=== PATIENT | female | born 1960 | race Caucasian/White ===

== ENCOUNTER 2017-11-25 09:09 | Emergency (ER) | payer OTHER, SELFPAY ==
[2017-11-25 09:10] VITALS: BP 211/127; PULSE 101; RESP 20; TEMP 36.9; O2SAT 96; BMI 62.6
--- NOTE | 2017-11-25 09:30 | CT_ITS ---
STUDY: CT ABDOMEN AND PELVIS WITHOUT CONTRAST REASON FOR EXAM: Female, 57 years old. One-day history of abdominal pain with nausea vomiting and diarrhea. RADIATION DOSAGE (If Supplied By Facility): CTDIvol = ( 34.45 ) mGy, DLP = ( 2022.94 ) mGycm TECHNIQUE: Transaxial images were obtained from the dome of the diaphragm to the symphysis pubis without oral contrast, and without intravenous contrast. Sagittal and coronal images were reconstructed. Individualized dose optimization techniques were used for this CT. COMPARISON: Comparison is made with prior study dated December 28, 2014. FINDINGS: The visualized lung bases are unremarkable. The visualized portions of the heart are within normal limits. There is decreased attenuation of the liver consistent with steatosis. Mild hepatomegaly. The patient is status post cholecystectomy. Normal spleen. Normal pancreas. Normal bilateral adrenal glands. Normal right kidney. Normal left kidney. There is a small hiatal hernia. Normal small intestine. There are multiple colonic diverticula consistent with diverticulosis. The appendix is visualized and appears normal. Normal abdominal aorta. Normal inferior vena cava. Normal retroperitoneum. Normal urinary bladder. Normal abdominal wall. There are diffuse degenerative changes of the visualized lumbar spine. CT/Abdomen/Pelvis without Cont IMPRESSION: No acute abnormality is seen. Electronically Signed: Sam Dumont MD at 10:51 EST Tel [phone], Service support ,
--- NOTE | 2017-11-25 09:33 | ED.VISSUMM ---
- ER Visit Summary Date of Service: 11/25/17 Chief Complaint: Nausea, vomiting, and diarrhea History of Present Illness: The patient is a 57 F with nausea, vomiting, and diarrhea that started yesterday. The patient had similar symptoms about a week ago, but they seem to resolve on their own. She says that it is worsened with any eating or drinking. She cannot take her medications. She does have some right lower abdominal pain as well. She reports chills and subjective fevers. She has a history of a hernia, surgery right oophorectomy, and bilateral tubal ligation. Physical Examination: Hypertensive 211/127. Heart rate 101. Otherwise vitals unremarkable. Afebrile. The patient appears uncomfortable but not toxic or in distress. Heart regular. Lungs clear. Abdomen is tender in the right lower quadrant. Back is nontender. Skin appears normal. Test Results: Labs, urinalysis, C. difficile testing, and CT pending. Emergency Department Course and Treatment: Treated with fluids and Zofran while awaiting results. CBC normal. CMP unremarkable. Creatinine 1.16. Alk phos 38. Lipase normal. Urinalysis shows a UTI. Culture pending. C. difficile was not performed as the patient did not have a bowel movement. CT abdomen showed no acute findings. On reassessment, the patient remains hypertensive. No further nausea or diarrhea. She was treated with Cipro for her UTI. She will be prescribed a course of Cipro and Zofran. Stay hydrated. Follow-up with PCP for recheck. Return if worse. She will resume her blood pressure medications at home at her request. Risks were discussed. Treatment Plan: As above Disposition: Discharged Impression: 1. UTI 2. Nausea, vomiting, diarrhea 3. Hypertension established This note was generated with [employer] software. It may contain incorrect words, spelling, and punctuation that were not noted in review of the chart prior to signing ED Disposition - Plan for ED Patient: Chief Complaint: Nausea/Vomiting/Diarrhea Referrals: Misael Snyder III, MD [Primary Care Provider] -
[2017-11-25] MEDS: 0.9% Normal Saline 1,000 ML 1000 ML IV (09:52)
[2017-11-25] MEDS: Ondansetron 4 MG/2 ML Vial IV (09:52)
[2017-11-25 10:22] LABS: ALB/GLOB Ratio 0.9 RATIO (0.9-2.4); AST(SGOT) 19 U/L (15-37); Alanine Aminotransfer ALT/SGPT 25 U/L (13-56); Albumin, Serum 3.6 g/dL (3.2-5.0); Alkaline Phosphatase 38 U/L (45-117); Anion Gap 5 (5-15); BUN 10 mg/dL (7-18); BUN/Creat Ratio 8.6 RATIO (10-20); Calcium,Total 8.8 mg/dL (8.5-10.1); Chloride 105 mmol/L (98-107); Creatinine, Serum 1.16 mg/dL (0.55-1.02); EST Glomerular Filtration Rate 51 mL/min (>60); Est Glom Filt Rate - Afr Amer 62 mL/min (>60); Estimated Creatinine Clearance 52.03 ml/min; Globulin 3.9 g/dL (2.2-4.2); Glucose 104 mg/dL (74-106); Lipase 143 U/L (73-393); Potassium 4.1 mmol/L (3.5-5.1); Protein, Total 7.5 g/dL (6.4-8.2); Sodium Level 140 mmol/L (136-145)
[2017-11-25 10:30] LABS: Absolute Lymphocyte Count 1.38 X10^3/ul (0.83-4.51); Absolute Neutrophil Count 3.9 X10^3/uL (2.0-7.7); Basophil# 0.01 X10^3/uL; Basophil% 0.2 % (0-1); Eosinophil# 0.16 X10^3/uL; Eosinophils% 2.7 % (0-5); Hematocrit 42.7 % (37-47); Lymphocyte # 1.38 X10^3/ul (4.0); Lymphocyte % 23.5 % (19-41); Mean Corp Hgb Conc 32.8 g/gl (32-36); Mean Corpuscular Hgb 29.4 pg (27.0-32.0); Mean Corpuscular Volume 89.7 fL (81-99); Mean Platelet Vol. 9.3 fl (6.2-12.0); Monocyte# 0.37 X10^3/uL; Monocyte% 6.3 % (0-10); Neutrophil # 3.93 X10^3/uL (2.7-7.7); Neutrophil % 67.1 % (47-70); Platelet Count 303 K/mm3 (150-450); RBC Distribution Width CV 14.3 % (11.6-14.6); RBC Distribution Width SD 46.7 fl (35.1-43.9); Red Blood Count 4.76 M/mm3 (4.2-5.4); White Blood Count 5.9 K/mm3 (4.4-11.0)
[2017-11-25 10:32] LABS: POSITIVE COUNT NO; POSITIVE DIFFERENTIAL NO; POSITIVE MORPHOLOGY NO
[2017-11-25 11:27] LABS: Mucous, Urine 0 SEEN /hpf (<or=2+)
[2017-11-25 11:30] LABS: Color, Urine Yellow (Yellow); Glucose, Dipstick Normal (Normal); Ketone-Dipstick Negative (Negative); Leukocyte Esterase-Dipstick 500 /ul (Negative); Nitrite-Dipstick Positive (Negative); Occult Blood-Urine 25 /ul (Negative); Protein-Dipstick Negative (Negative); Specific Gravity, Urine 1.005 (1.002-1.030); Urine Bilirubin Dipstick Negative (Negative); Urine Clarity Sl. Cloudy (Clear); Urine Urobilinogen Normal (Normal)
[2017-11-25 11:42] LABS: Bacteria 3+ /hpf (None Seen); Red Blood Cells-Urine 0-5 SEEN /hpf (0-5); Squamous Epithelial Cells - UA 0-5 SEEN /hpf (5-10); White Blood Cells 25-50 SEEN /hpf (0-5)
[2017-11-25 12:03] VITALS: BP 205/103; PULSE 97; RESP 22; O2SAT 95
[2017-11-25] MEDS: Ciprofloxacin 500 MG Tablet PO (12:43)
--- NOTE | 2017-11-25 12:58 | ED.DEP ---
ED Disposition - Plan for ED Patient: Chief Complaint: Nausea/Vomiting/Diarrhea Instructions: ED UTI Cystitis Female Prescriptions: Ondansetron [Zofran Odt] 4 mg PO Q8H PRN PRN #10 tab PRN Reason: Nausea Ciprofloxacin [Cipro] 500 mg PO BID #14 tab Referrals: Misael Snyder III, MD [Primary Care Provider] -
[2017-11-25 13:06] VITALS: PULSE 93; RESP 18; O2SAT 98
== END 2017-11-25 13:07 | disposition home or self-care (01) ==
PROVIDERS: Emergency Provider Emergency Medicine; Family Provider Family Medicine; PCP Family Medicine
DX: N39.0 Urinary tract infection, site not specified (principal); R11.2 Nausea with vomiting, unspecified; R19.7 Diarrhea, unspecified; I10 Essential (primary) hypertension; M19.90 Unspecified osteoarthritis, unspecified site; Z90.721 Acquired absence of ovaries, unilateral; Z98.51 Tubal ligation status; Z79.899 Other long term (current) drug therapy
CPT/HCPCS: 74176; 80053; 81001; 83690; 85025; 87086; 87088; 87186; 96361; 96374; 99285; J7030; P9612; J2405

== ENCOUNTER 2018-04-02 09:55 | Emergency (ER) | payer OTHER, SELFPAY ==
[2018-04-02 09:56] VITALS: BP 182/109; PULSE 64; RESP 17; TEMP 36.2; O2SAT 97; BMI 62.9
--- NOTE | 2018-04-02 10:19 | ED.VISSUMM ---
- ER Visit Summary Date of Service: 04/02/18 Chief Complaint: Right ear pain History of Present Illness: The patient is a 57 F who has a history of hypertension GERD morbid obesity. She states that for the past 6 weeks she has had nasal congestion. She states that today she has a burning-like pain in the ear on the right. She states that it was sore to the touch. She notes that her ear feels clogged. She denies any fevers. Eyes any drainage from the ear. She denies any rashes. Physical Examination: Afebrile vital signs are stable noted hypertension Gen: Well-nourished well-developed Head: Normocephalic atraumatic Eyes: Perrl EOMI ENT: There is fluid behind each tympanic membrane right greater than left. I do not appreciate any vesicular rash. There is no mastoid tenderness. There is no significant pain with movement of the pinna. No rhinorrhea moist mucous membranes Neck: Supple no lymphadenopathy no JVD nontender CVS: Regular rate rhythm no murmurs normal S1-S2 Respiratory: No distress clear to auscultation bilaterally chest nontender Abdomen: Soft nontender nondistended normal bowel sounds no masses Back: Nontender Extremity: Nontender no edema Skin: Normal color no rash Neuro: alert orientated ?3 CN II-XII intact normal strength sensation reflexes gait cerebellar Psych: Normal affect normal mood Emergency Department Course and Treatment: She was advised to monitor for signs of shingles. She is to return if that happens. I think is most likely a serous otitis. The patient may be developing a bacterial infection. We talked about [id number] technique. Recommend Tylenol. Follow-up with her doctor if not improving. She will have a prescription for Augmentin. Impression: 1. Serous otitis media right This note was generated with [employer] dictation software. It may contain incorrect words, spelling, and punctuation that were not noted in review of the chart prior to signing ED Disposition - Plan for ED Patient: Disposition: Home or Assisted Living Chief Complaint: Ear Problem Instructions: ED Otitis Media Serous Adult Prescriptions: Amox/Clavulanate Tablet [Augmentin Tablet] 875 mg PO Q12H #20 tab Referrals: Misael Snyder III, MD [Primary Care Provider] - 1 Week if not improving
--- NOTE | 2018-04-02 10:23 | ED.DCSUM_ITS ---
- ER Visit Summary Date of Service: 04/02/18 Chief Complaint: Right ear pain History of Present Illness: The patient is a 57 F who has a history of hypertension GERD morbid obesity. She states that for the past 6 weeks she has had nasal congestion. She states that today she has a burning-like pain in the ear on the right. She states that it was sore to the touch. She notes that her ear feels clogged. She denies any fevers. Eyes any drainage from the ear. She denies any rashes. Physical Examination: Afebrile vital signs are stable noted hypertension Gen: Well-nourished well-developed Head: Normocephalic atraumatic Eyes: Perrl EOMI ENT: There is fluid behind each tympanic membrane right greater than left. I do not appreciate any vesicular rash. There is no mastoid tenderness. There is no significant pain with movement of the pinna. No rhinorrhea moist mucous membranes Neck: Supple no lymphadenopathy no JVD nontender CVS: Regular rate rhythm no murmurs normal S1-S2 Respiratory: No distress clear to auscultation bilaterally chest nontender Abdomen: Soft nontender nondistended normal bowel sounds no masses Back: Nontender Extremity: Nontender no edema Skin: Normal color no rash Neuro: alert orientated ?3 CN II-XII intact normal strength sensation reflexes gait cerebellar Psych: Normal affect normal mood Emergency Department Course and Treatment: She was advised to monitor for signs of shingles. She is to return if that happens. I think is most likely a serous otitis. The patient may be developing a bacterial infection. We talked about [id number] technique. Recommend Tylenol. Follow-up with her doctor if not improving. She will have a prescription for Augmentin. Impression: 1. Serous otitis media right This note was generated with [employer] dictation software. It may contain incorrect words, spelling, and punctuation that were not noted in review of the chart prior to signing ED Disposition - Plan for ED Patient: Disposition: Home or Assisted Living Chief Complaint: Ear Problem Instructions: ED Otitis Media Serous Adult Prescriptions: Amox/Clavulanate Tablet [Augmentin Tablet] 875 mg PO Q12H #20 tab Referrals: Misael Snyder III, MD [Primary Care Provider] - 1 Week if not improving
[2018-04-02 10:27] VITALS: BP 158/77; PULSE 61; RESP 16; O2SAT 97
== END 2018-04-02 10:42 | disposition home or self-care (01) ==
LOC: ED 10:33
PROVIDERS: Emergency Provider Emergency Medicine; Family Provider Family Medicine; PCP Family Medicine
DX: H65.01 Acute serous otitis media, right ear (principal); I10 Essential (primary) hypertension; K21.9 Gastro-esophageal reflux disease without esophagitis; E66.01 Morbid (severe) obesity due to excess calories; Z68.44 Body mass index [BMI] 60.0-69.9, adult; Z79.899 Other long term (current) drug therapy
CPT/HCPCS: 99282

== ENCOUNTER 2019-06-07 10:41 | Emergency (ER) | payer OTHER, SELFPAY ==
[2019-02-12 12:16] VITALS: BMI 62.9
[2019-06-07 10:42] VITALS: BP 155/112; PULSE 109; RESP 20; TEMP 36.8; O2SAT 95; BMI 62.6
[2019-06-07 10:50] VITALS: BMI 63.3
--- NOTE | 2019-06-07 10:52 | ED.DCSUM_ITS ---
History of Present Illness Chief Complaint: Abd Pain Detail of Chief Complaint: Right lower quadrant with nausea and vomiting Informant: Patient Onset: Days - June 04 Context: Sudden Onset Timing: Continuous, Waxes and wanes Quality: Pain Location: Right lower quadrant Current Severity: Mild Maximum Severity: Severe Worsened by: Nothing specifically Relieved by: Nothing Associated Symptoms: Nausea and vomiting Narrative: Patient is a 59-year-old woman with a BMI of 63.3 presents with nausea and vomiting right lower quadrant abdominal pain that started June 04. She states the pain is constant and waxes and wanes. She denies dysuria, frequency, urgency or hematuria. She is status post cholecystectomy and right nephrectomy. Her appendix is still in. She denies anorexia. She states any time she attempts to eat even crackers she vomits. She denies fever or chills. She denies viral-like symptoms. There is no history of trauma. Prior similar symptoms: No Recent Illness/Hospitalization: No - Past Medical History (1) Depression Status: Chronic (2) GERD (gastroesophageal reflux disease) Status: Chronic (3) HTN (hypertension) Status: Chronic (4) Morbid obesity with BMI of 60.0-69.9, adult Status: Chronic Past Medical History - Allergies and Home Meds Allergies/Adverse Reactions: Allergies hydrocodone bitartrate [From Vicodin] Allergy (Verified 06/07/19 10:42) Itching venom-honey bee [bee venom (honey bee)] Allergy (Verified 06/07/19 10:42) Swelling venom-wasp [wasp venom] Allergy (Verified 06/07/19 10:42) Anaphylaxis enoxaparin sodium [From Lovenox] Adverse Reaction (Verified 06/07/19 10:42) Excessive bruising PLASTIC BANDAIDS Allergy (Uncoded 06/07/19 10:42) Blisters Primary Care Physician: Misael Snyder III, MD [Primary Care Provider] - Prior records reviewed: Yes Surgical History: cholecystectomy, - - EGD and colonoscopy Lives: Alone Smoking Status: Former smoker Alcohol: None Drugs: None - Family History Maternal Family History: Reports: Diabetes Paternal Family History: Reports: Stroke Review of Systems General: Denies: Chills, Fever, Malaise, Sweats Eyes: Denies: Visual changes - bilaterally, Blurred Vision - bilaterally, Diplopia ENT: Denies: Rhinorrhea, Sore throat Cardiovascular: Denies: Chest pain, Palpitations Respiratory: Denies: Dyspnea, Cough, Dyspnea on exertion Gastrointestinal: Reports: Abdominal pain, Nausea, Vomiting Genitourinary: Denies: Dysuria, Hematuria, Frequency Musculoskeletal: Denies: Myalgias, Arthralgias, Neck pain, Back pain, Swelling, Extremity Pain, -, - Skin: Denies: Rash, Wounds Neurological: Denies: Headache, Weakness, Parasthesia, Numbness Psych: Reports: Depression Endocrine: Denies: Polyuria, Polydipsia Hematologic: Denies: Easy bruising, Easy bleeding Physical Exam Vital Signs/Narrative: Vital Signs Temp Pulse Resp BP Pulse Ox 06/07/19 10:42 98.3 F 109 H 20 H 155/112 H 95 Inital Vital Signs reviewed: Yes General: Well nourished, Well developed, Acute Distress Head: Normocephalic, Atraumatic Eyes: Perrl, EOMI. Negative for: Pale conjunctiva, Scleral icterus ENT: No rhinorrhea, Dry mucous membranes. Negative for: Nasal congestion, Sinus tenderness Neck: Supple, Nontender, No lymphadenopathy, No JVD Cardiovascular: Regular rhythm, No murmurs, Normal S1, Normal S2, Tachycardia Respiratory: No distress, CTA bilaterally, Chest nontender Abdomen: Soft, Nontender, Nondistended, Normal bowel sounds, No masses Rectal: Deferred Back: Nontender, Normal Inspection. Negative for: CVA tenderness Extremities: Nontender, Edema Skin: Normal color, No rash, No Trauma. Negative for: Cyanosis, Diaphoresis, Jaundice Neurological: Alert, Oriented x3, Cranial nerves II-XII grossly intact, Normal Strength, Normal Sensation, Normal Gait - Not assessed Psychological: Normal affect Diagnostic/Tx/Re-eval Impressions Abdomen/Pelvis CT 06/07/19 12:00 IMPRESSION: Status post cholecystectomy. Mild hepatomegaly. No acute abnormality is seen. Electronically Signed: Sam Dumont, at 12:45 EDT , Service support , 06/07/19 12:00 Abdomen/Pelvis without Cont [CT] Stat Laboratory Results 09/09/19 09/09/19 09/09/19 11:10 11:10 11:10 WBC 11.1 H RBC 5.66 H Hgb 17.1 H Hct 51.1 H MCV 90.3 MCH 30.2 MCHC 33.5 RDW Std Deviation 42.4 RDW Coeff of Ole 13.0 Plt Count 476 H MPV 9.2 Immature Gran % (Auto) 0.400 Neut % (Auto) 58.9 Lymph % (Auto) 30.5 [place] % (Auto) 6.0 Eos % (Auto) 3.7 Baso % (Auto) 0.5 Absolute Neuts (auto) 6.5 Absolute Lymphs (auto) 3.40 Nucleated RBC % 0 Sodium 138 Potassium 4.2 Chloride 104 Carbon Dioxide 23.0 Anion Gap 11 BUN 16 Creatinine 1.59 H Estim Creat Clear Calc 35.66 Est GFR (MDRD) Af Amer 43 L Est GFR (MDRD) Non-Af 35 L BUN/Creatinine Ratio 10.1 Glucose 146 H Calcium 9.8 Urine Color Yellow Urine Clarity Sl. Cloudy Urine pH 5.0 Ur Specific [place] 1.020 Urine Protein 30 H Urine Glucose (UA) Normal Urine Ketones 5 H Urine Occult Blood 25 H Urine Nitrite Positive H Urine Bilirubin Negative Urine Urobilinogen 1 H Ur Leukocyte Esterase 100 H Urine RBC 0-5 SEEN Urine WBC 10-25 SEEN Ur Squamous Epith Cells 10-25 SEEN Urine Bacteria 3+ Urine Mucus 0 SEEN White count is slightly elevated which is nondiagnostic. Basic metabolic panel is remarkable elevated glucose of 146. Urine is contaminated with [address] of the abdomen pelvis reveals no acute pathology. Therefore will discharge home. Patient was informed that 50% of patients who presents to the emergency department the cause of the pain is unknown. When I informed of this information she no longer was in pain and asked questions. Her questions were answered to her satisfaction and she was discharged home. - Medical Decision Making With abrupt onset of right lower quadrant pain that is colicky in nature differential would include obstructing ureteral stone. Since she does not have a right ovary there is no consideration for torsion, ruptured cyst. This may represent atypical presentation for appendicitis. Since there is no diarrhea inflammatory bowel disorder is low on differential. Since she has no viral symptoms doubt mesenteric adenitis. Once laboratory results are available we will determine if a scan will be obtained with or without contrast. ED Disposition - Plan for ED Patient: Disposition: Home or Assisted Living Diagnosis: Right lower quadrant abdominal pain Instructions: ABDOMINAL PAIN, Unknown Cause, (Female) Referrals: Misael Snyder III, MD [Primary Care Provider] - 3-5 Days if not improving
[2019-06-07] MEDS: 0.9% Normal Saline 1,000 ML 1000 ML IV (11:11)
[2019-06-07] MEDS: morphine 8 MG/ML Syringe IV (11:12)
[2019-06-07] MEDS: Ondansetron 4 MG/2 ML Vial IV (11:12)
[2019-06-07 11:20] LABS: Absolute Neutrophil Count 6.5 X10^3/uL (2.0-7.7); Basophil# 0.06 X10^3/uL; Basophil% 0.5 % (0-1); Eosinophil# 0.41 X10^3/uL; Eosinophils% 3.7 % (0-5); Hematocrit 51.1 % (37-47); Hemoglobin 17.1 g/dL (12.0-15.0); Lymphocyte % 30.5 % (19-41); Mean Corp Hgb Conc 33.5 g/dL (32-36); Mean Corpuscular Hgb 30.2 pg (27.0-32.0); Mean Corpuscular Volume 90.3 fL (81-99); Mean Platelet Vol. 9.2 fl (6.2-12.0); Monocyte# 0.67 X10^3/uL; Mucous, Urine 0 SEEN /hpf (<or=2+); NRBC Flagged by Analyzer 0 % (0-5); Neutrophil # 6.54 X10^3/uL (2.7-7.7); Neutrophil % 58.9 % (47-70); Platelet Count 476 K/mm3 (150-450); RBC Distribution Width SD 42.4 fl (35.1-43.9); Red Blood Count 5.66 M/mm3 (4.2-5.4); White Blood Count 11.1 K/mm3 (4.4-11.0)
[2019-06-07 11:26] LABS: Color, Urine Yellow (Yellow); Glucose, Dipstick Normal (Normal); Ketone-Dipstick 5 mg/dl (Negative); Leukocyte Esterase-Dipstick 100 /ul (Negative); Nitrite-Dipstick Positive (Negative); Occult Blood-Urine 25 /ul (Negative); Protein-Dipstick 30 mg/dl (Negative); Urine Bilirubin Dipstick Negative (Negative); Urine Clarity Sl. Cloudy (Clear); Urine Urobilinogen 1 mg/dl (Normal)
[2019-06-07 11:33] LABS: Anion Gap 11 (5-15); BUN 16 mg/dL (7-18); BUN/Creat Ratio 10.1 RATIO (10-20); Bacteria 3+ /hpf (None Seen); Calcium,Total 9.8 mg/dL (8.5-10.1); Chloride 104 mmol/L (98-107); Creatinine, Serum 1.59 mg/dL (0.55-1.02); EST Glomerular Filtration Rate 35 mL/min (>60); Est Glom Filt Rate - Afr Amer 43 mL/min (>60); Estimated Creatinine Clearance 35.66 ml/min; Glucose 146 mg/dL (74-106); Potassium 4.2 mmol/L (3.5-5.1); Red Blood Cells-Urine 0-5 SEEN /hpf (0-5); Sodium Level 138 mmol/L (136-145); Squamous Epithelial Cells - UA 10-25 SEEN /hpf (5-10); White Blood Cells 10-25 SEEN /hpf (0-5)
--- NOTE | 2019-06-07 12:00 | CT_ITS ---
STUDY: CT ABDOMEN AND PELVIS WITHOUT CONTRAST REASON FOR EXAM: Female, 59 years old. Several day history of right-sided abdominal pain. RADIATION DOSAGE (If Supplied By Facility): CTDIvol = ( 34.45 ) mGy, DLP = ( 1781.77 ) mGycm TECHNIQUE: Transaxial images were obtained from the dome of the diaphragm to the symphysis pubis without oral contrast, and without intravenous contrast. Sagittal and coronal images were reconstructed. Individualized dose optimization techniques were used for this CT. COMPARISON: Comparison is made with prior study dated November 25, 2017. FINDINGS: The visualized lung bases are unremarkable. The visualized portions of the heart are within normal limits. Normal liver. Mild hepatomegaly. There are surgical clips in the gallbladder fossa consistent with a prior cholecystectomy. Normal spleen. Normal pancreas. Normal bilateral adrenal glands. Normal right kidney. Normal left kidney. Normal visualized stomach. Normal small intestine. Normal colon. The appendix is visualized and appears normal. There is diffuse atherosclerotic calcification of the abdominal aorta, without a demonstrated aneurysm. Normal inferior vena cava. There is borderline retroperitoneal lymphadenopathy with enlarged nodes no greater than 10mm in the short axis diameter. Normal urinary bladder. 1.6 x 1.6 cm calcified right uterine fibroid. A mesh is seen along the anterior abdominal wall in keeping with prior ventral hernia repair. There are diffuse degenerative changes of the visualized lumbar spine. CT/Abdomen/Pelvis without Cont IMPRESSION: Status post cholecystectomy. Mild hepatomegaly. No acute abnormality is seen. Electronically Signed: Sam Dumont, at 12:45 EDT , Service support ,
[2019-06-07 13:11] VITALS: BP 139/96; PULSE 74; RESP 18; O2SAT 99
[2019-06-07 13:50] VITALS: BP 141/72; PULSE 67; RESP 15; O2SAT 98
== END 2019-06-07 13:52 | disposition home or self-care (01) ==
PROVIDERS: Emergency Provider Emergency Medicine; Family Provider Family Medicine; PCP Family Medicine
DX: R10.31 Right lower quadrant pain (principal); R11.2 Nausea with vomiting, unspecified; K21.9 Gastro-esophageal reflux disease without esophagitis; I10 Essential (primary) hypertension; Z68.44 Body mass index [BMI] 60.0-69.9, adult; E66.01 Morbid (severe) obesity due to excess calories; F32.9 Major depressive disorder, single episode, unspecified; Z79.899 Other long term (current) drug therapy; Z87.891 Personal history of nicotine dependence
CPT/HCPCS: 74176; 80048; 81001; 85025; 96361; 96374; 96375; 99283; J2405

== ENCOUNTER 2019-10-18 14:01 | Emergency (ER) | payer OTHER, SELFPAY ==
[2019-10-04 14:01] VITALS: BMI 63.3
[2019-10-18 14:02] VITALS: BP 119/65; PULSE 50; RESP 18; TEMP 36.2; O2SAT 97
[2019-10-18 14:03] VITALS: BP 119/65; PULSE 50; RESP 18; TEMP 36.2; O2SAT 97; BMI 63.6
--- NOTE | 2019-10-18 15:18 | RAD_ITS ---
STUDY: X-RAY CHEST REASON FOR EXAM: Female, 59 years old. COUGH X WEEKS TECHNIQUE: PA and lateral views of the chest. COMPARISON: July 28, 2017 CT chest FINDINGS: The vascular markings are mildly prominent. Findings are similar to the prior studies. There is vague suggestion of increased density in the left lung base. There is no demonstrated pleural abnormality. Normal size heart. Normal mediastinum and mahendra. Normal visualized pulmonary arteries. Normal visualized aortic arch and descending thoracic aorta. There are diffuse degenerative changes of the visualized thoracic spine. Normal visualized ribs, clavicles, and shoulders. There is no demonstrated abnormality of the visualized soft tissue structures of the upper abdomen. RAD/Chest PA and Lateral IMPRESSION: Vascular prominence consider vascular congestion and possible left lower lobe atelectasis. Limited visualization of the left lung base. Electronically Signed: Zenobia Espino MD at 15:59 EST Tel , Service support ,
--- NOTE | 2019-10-18 15:19 | ED.VIS.URI ---
History of Present Illness Chief Complaint: Shortness of Breath Informant: Patient Onset: Weeks - 2-3 Context: Gradual Onset Timing: Continuous Quality: wheezing Location: chest Current Severity: Gone Maximum Severity: Moderate Worsened by: - - coughing Relieved by: - - albuterol Associated Symptoms: Nasal Congestion, Vomiting - only posttussive when having coughing fits, Shortness of Breath - when wheezing, Nonproductive cough. Negative for: Hemoptysis Narrative: Patient has had cough and wheezing for the past couple weeks maybe a little more, 3 days into the illness she saw urgent care and was put on prednisone and azithromycin that she finished, she states that made no difference and she is still ill. She has no worsening symptoms, she has an albuterol inhaler that is helping when she wheezes, no fevers. Her right ear is hurting off and on. Chest is sore from coughing, no other pains/discomfort there. No new symptoms in her legs, pains or swelling. No history of cardiac issues or DVT/PE. Patient states she has a history of recurrent asthmatic bronchitis but does not think she has ever had asthma from any other causes except for when she gets sick. Prior similar symptoms: Yes - Past Medical History (1) Depression Status: Chronic (2) GERD (gastroesophageal reflux disease) Status: Chronic (3) HTN (hypertension) Status: Chronic (4) Morbid obesity with BMI of 60.0-69.9, adult Status: Chronic Past Medical History - Allergies and Home Meds Allergies/Adverse Reactions: Allergies hydrocodone bitartrate [From Vicodin] Allergy (Verified 10/18/19 15:22) Itching venom-honey bee [bee venom (honey bee)] Allergy (Verified 10/18/19 15:22) Swelling venom-wasp [wasp venom] Allergy (Verified 10/18/19 15:22) Anaphylaxis enoxaparin sodium [From Lovenox] Adverse Reaction (Verified 10/18/19 15:22) Excessive bruising PLASTIC BANDAIDS Allergy (Uncoded 10/18/19 15:22) Blisters Primary Care Physician: Misael Snyder III, MD [Primary Care Provider] - Surgical History: cholecystectomy, - - EGD and colonoscopy Lives: Alone Smoking Status: Former smoker - Family History Maternal Family History: Reports: Diabetes Paternal Family History: Reports: Stroke Review of Systems General: Reports: Malaise. Denies: Chills, Fever, Sweats Eyes: Denies: Visual changes - bilaterally, Diplopia ENT: Reports: Right ear pain, Rhinorrhea. Denies: Sore throat Cardiovascular: Reports: Chest pain - Sore from coughing. See HPI. Denies: Palpitations Respiratory: Reports: Dyspnea, Cough. Denies: Sputum, Dyspnea on exertion Gastrointestinal: Denies: Abdominal pain, Nausea, Vomiting, Diarrhea, Melena, Hematochezia Genitourinary: Denies: Dysuria, Hematuria, Frequency Musculoskeletal: Denies: Back pain, Swelling, Extremity Pain Skin: Denies: Rash, Wounds Neurological: Denies: Headache, Weakness, Numbness Physical Exam Vital Signs/Narrative: Vital Signs Temp Pulse Resp BP Pulse Ox 10/18/19 14:03 97.2 F L 50 L 18 119/65 97 10/18/19 14:02 97.2 F L 50 L 18 119/65 97 Inital Vital Signs reviewed: Yes General: Well nourished, Well developed, Obese Head: Normocephalic, Atraumatic Eyes: Perrl, EOMI Ears: Normal external canal, TM's clear. Negative for: Right Mastoid Tenderness, Left Mastoid Tenderness Nose: Normal Inspection. Negative for: Purulent Drainage Mouth/Throat: Normal Inspection, No Posterior Erythema Neck: Supple, Nontender, No Lymphadenopathy, No Meningismus Cardiovascular: Regular rate, Regular rhythm, No murmurs Respiratory: No distress, CTA bilaterally, Chest nontender. Negative for: Rales, Rhonchi, Wheezing Abdomen: Soft, Nontender, Nondistended, Normal bowel sounds Back: Nontender, Normal Inspection Extremities: Nontender, No edema. Negative for: Calf Tenderness Skin: Normal color, No rash Neurological: Alert, Oriented x3, Cranial nerves II-XII grossly intact, Normal Strength, Normal Sensation Psychological: Normal affect, Normal Mood Diagnostic/Tx/Re-eval Clinical Impression(s) from Imaging Studies Chest X-Ray 10/18/19 15:18 IMPRESSION: Vascular prominence consider vascular congestion and possible left lower lobe atelectasis. Limited visualization of the left lung base. Electronically Signed: Zenobia Espino MD at 15:59 EST Tel , Service support , - Medical Decision Making Patient symptoms are consistent with respiratory illness. She probably does not have true asthma based on what she is telling me and the fact that she has not responded to prednisone. She was on an appropriate antibiotic to cover for atypicals and is not better. Chest x-ray was obtained and has the above findings. Until proven otherwise, I think these findings may represent infiltrate/pneumonia. She has no orthopnea or lower extremity edema, or JVD or basilar rhonchi to suggest that this is vascular/edema in nature. With left lower lobe atelectasis in context, I think it would be reasonable to treat this as pneumonia although I think it is possible that she does not have pneumonia. Will place her on Augmentin and advised that she follow-up with her PCP. I do not think she needs any other test, her vital signs are normal and her oxygen levels are very good, and she is not symptomatic at this time when she is not coughing except for having chest soreness that is reproducible on palpation. She is comfortable with that plan and understands the explanation. ED Disposition - Plan for ED Patient: Disposition: Home or Assisted Living Diagnosis: Lower respiratory tract infection Instructions: BRONCHITIS with Wheezing (Adult) Prescriptions: Amox/Clavulanate Tablet [Augmentin Tablet] 875 mg PO Q12H #20 tab Transmission Status: Pending to [facility]/pharmacy #[id number] Referrals: Misael Snyder III, MD [Primary Care Provider] - 3-5 Days if not improving
[2019-10-18 15:46] VITALS: O2SAT 97
[2019-10-18 15:47] VITALS: BP 117/66; PULSE 43; O2SAT 96
== END 2019-10-18 16:24 | disposition home or self-care (01) ==
PROVIDERS: Emergency Provider Emergency Medicine; PCP Family Medicine
DX: J22 Unspecified acute lower respiratory infection (principal); H92.01 Otalgia, right ear; I10 Essential (primary) hypertension; K21.9 Gastro-esophageal reflux disease without esophagitis; E66.01 Morbid (severe) obesity due to excess calories; Z68.44 Body mass index [BMI] 60.0-69.9, adult; Z79.899 Other long term (current) drug therapy; Z88.5 Allergy status to narcotic agent; Z87.891 Personal history of nicotine dependence; Z90.49 Acquired absence of other specified parts of digestive tract
CPT/HCPCS: 71046; 99282

== ENCOUNTER → 2019-10-25 12:09 | Outpatient (CLI) | payer OTHER, SELFPAY ==
[2019-10-18 14:03] VITALS: BMI 63.6
[2019-10-25 13:50] LABS: Hematocrit 40.4 % (37-47); Mean Corp Hgb Conc 32.2 g/dL (32-36); Mean Corpuscular Hgb 30.4 pg (27.0-32.0); Mean Corpuscular Volume 94.4 fL (81-99); Mean Platelet Vol. 9.7 fl (6.2-12.0); Platelet Count 320 K/mm3 (150-450); RBC Distribution Width CV 12.9 % (11.6-14.6); RBC Distribution Width SD 43.9 fl (35.1-43.9); Red Blood Count 4.28 M/mm3 (4.2-5.4); White Blood Count 5.3 K/mm3 (4.4-11.0)
[2019-10-25 13:58] LABS: Albumin, Serum 3.4 g/dL (3.2-5.0); BUN 10 mg/dL (7-18); BUN/Creat Ratio 7.6 RATIO (10-20); Calcium,Total 8.2 mg/dL (8.5-10.1); Chloride 106 mmol/L (98-107); Creatinine, Serum 1.31 mg/dL (0.55-1.02); EST Glomerular Filtration Rate 44 mL/min (>60); Est Glom Filt Rate - Afr Amer 53 mL/min (>60); Glucose 103 mg/dL (74-106); Sodium Level 138 mmol/L (136-145)
[2019-10-25 14:01] LABS: Protein, Urine (Random) 32.4 mg/dL (<11.9); Protein:Creat Ratio 129 mg/g CRE (0-200)
[2019-10-25 14:12] LABS: PTHIN 71.2 pg/mL (18.4-80.1); Vitamin D,25 Hydroxy 29.5 ng/mL (29.95-100.01)
== END ==
PROVIDERS: PCP Family Medicine; Referring Provider Internal Medicine Nephrology; Visit Provider Internal Medicine Nephrology
DX: N18.3 Chronic kidney disease, stage 3 (moderate) (principal)
CPT/HCPCS: 36415; 80069; 82306; 82570; 83970; 84156; 85027

== ENCOUNTER 2019-10-29 09:14 | Emergency (ER) | payer OTHER, SELFPAY ==
[2019-10-29 09:15] VITALS: BP 192/103; PULSE 99; RESP 17; TEMP 36.2; O2SAT 98; BMI 64.5
--- NOTE | 2019-10-29 09:41 | ED.VISSUMM ---
- ER Visit Summary Date of Service: 10/29/19 Chief Complaint: Rash with itching History of Present Illness: The patient is a 59 F is post recent Augmentin for pneumonia. Prior to that she was on Z-Keith and prednisone. She has been off the prednisone. States the antibiotic was finished on Friday. On Friday she developed a rash in both her hands and feet red and itches. Then it spread to her chest abdomen and back. He says he never had a rash like this before. She says her respiratory infection is getting better. Physical Examination: Obese middle-aged female no acute distress. Vital signs are stable afebrile. H EENT exam unremarkable. Lips and tongue are not swollen. Posterior pharynx normal. Moist. Neck nontender no lymphadenopathy. Lungs clear to auscultation. Dry cough. Heart regular rhythm no murmur. Abdomen morbidly obese but soft. Extremities moves all 4. Neurovascular intact. Skin she has a red rash on basically almost her entire body it blanches consistent with an allergic reaction. There is no petechiae or purpura. No sloughing of skin. Patient is awake alert with no focal motor deficits. Test Results: None Emergency Department Course and Treatment: P.o. prednisone 60 mg here. Exam and history consistent with allergic reaction most likely to the Augmentin. Treatment Plan: Prednisone 40 mg a day for up to a week. She may stop it if the rash resolves. Disposition: Discharge Impression: Acute rash secondary to allergic reaction most likely to Augmentin This note was generated with [employer] dictation software. It may contain incorrect words, spelling, and punctuation that were not noted in review of the chart prior to signing ED Disposition - Plan for ED Patient: Referrals: Misael Snyder III, MD [Primary Care Provider] -
--- NOTE | 2019-10-29 09:45 | ED.DEP ---
ED Disposition - Plan for ED Patient: Disposition: Home or Assisted Living Instructions: ALLERGIC REACTION, Drug Prescriptions: Prednisone [Deltasone] 40 mg PO DAILY #7 tab Transmission Status: Pending to [facility]/pharmacy #[id number] Referrals: Misael Snyder III, MD [Primary Care Provider] - 1 Week if not improving Additional Instructions: Prednisone daily until rash is gone. If rash resolves she can stop the prednisone. Most likely this is allergic reaction to the Augmentin which is a form of penicillin.
[2019-10-29] MEDS: predniSONE 20 MG Tablet 60 MG PO (10:26)
== END 2019-10-29 10:55 | disposition home or self-care (01) ==
LOC: ED 10:29
PROVIDERS: Emergency Provider Emergency Medicine; PCP Family Medicine
DX: L27.0 Generalized skin eruption due to drugs and medicaments taken internally (principal); T36.0X5A Adverse effect of penicillins, initial encounter; T36.1X5A Adverse effect of cephalosporins and other beta-lactam antibiotics, initial encounter; Y92.9 Unspecified place or not applicable; I10 Essential (primary) hypertension; Z87.01 Personal history of pneumonia (recurrent); Z79.899 Other long term (current) drug therapy
CPT/HCPCS: 99283

== ENCOUNTER 2020-03-05 13:38 | Emergency (ER) | payer OTHER, MEDICAID, SELFPAY ==
[2019-11-06 12:02] VITALS: BMI 64.5
[2020-03-05 13:39] VITALS: BP 120/67; PULSE 44; RESP 22; TEMP 36.9; O2SAT 97; BMI 64.5
--- NOTE | 2020-03-05 14:28 | ED.VISSUMM ---
- ER Visit Summary Date of Service: 03/05/20 CT of pelvis demonstrated no colon inflammation or appendicitis. 2.2 cm round low-attenuation focus within the right kidney was noted by radiology. Underlying cyst, neoplastic process, or infectious etiology was possible. A cath urine was obtained which is 25-50 white cells 2+ bacteria 1+ nitrates. Will place her on Keflex perform a urine culture have her follow-up with her doctors. This note was generated with [employer] dictation software. It may contain incorrect words, spelling, and punctuation that were not noted in review of the chart prior to signing <Meliton Abdi - Last Filed: 03/05/20 17:52> - ER Visit Summary Date of Service: 03/05/20 Chief Complaint: Fever History of Present Illness: The patient is a 59 F who presents with a fever for the past 4 days. Patient also admits to some right lower abdominal pain. Patient states this has been getting progressively worse. Patient states her pain is worse with movement. Patient describes her pain is sharp and aching. Patient admits to some nausea and vomiting. Patient denies any hematemesis or coffee-ground emesis. Patient admits to some diarrhea. Patient denies any melena or hematochezia. Patient admits to some dysuria but denies any hematuria. Patient admits to some dizziness. Patient describes this as a lightheaded feeling at times. Patient admits to some shortness of breath. Patient denies any chest pain or palpitations. Patient denies any cough. Physical Examination: Vital signs are stable. Patient is afebrile. Patient is in no acute distress. Oral mucosa is pink and moist. Neck is supple. Trachea is midline. There is no JVD. Heart was regular rate and rhythm. Lungs are clear and equal bilaterally. Abdomen is soft. Bowel sounds are normal. There is right lower quadrant tenderness. There is no Rovsing sign. There is pain with internal and external rotation of the right lower extremity. Cranial nerves II through XII are intact. There are no focal motor or sensory deficits. Test Results: CBC was normal. Comprehensive metabolic profile showed a slightly elevated creatinine of 1.64 and a BUN of 20. These are consistent with prior results. Lipase was normal. Urinalysis was ordered and is pending. CT scan of the abdomen and pelvis was ordered and is pending. Emergency Department Course and Treatment: She was given morphine and Zofran here. Disposition: Care of the patient was turned over to the oncoming physician pending labs and CT evaluation. Impression: Abdominal pain This note was generated with [employer] dictation software. It may contain incorrect words, spelling, and punctuation that were not noted in review of the chart prior to signing <Lyle Cornejo - Last Filed: 03/06/20 18:11> ED Disposition <Meliton Abdi - Last Filed: 03/05/20 17:52> <Lyle Cornejo - Last Filed: 03/06/20 18:11> - Plan for ED Patient: Disposition: Home or Assisted Living Diagnosis: Pyelonephritis Instructions: ED Pyelonephritis Female Adult Prescriptions: Cephalexin [Keflex] 500 mg PO Q6 #40 cap Transmission Status: Received by [facility]/pharmacy #[id number] Referrals: Misael Snyder III, MD [Primary Care Provider] - 3-5 Days if not improving
--- NOTE | 2020-03-05 14:33 | CT_ITS ---
STUDY: CT ABDOMEN AND PELVIS WITH CONTRAST REASON FOR EXAM: Female, 59 years old. RLQ PAIN, FEVER, DIZZINESS, INTERMITTENT SOB, ASTHMA, SURG-cholecystectomy, right oophorectomy,VENTRAL UMBILICAL HERNIA, HTN, HLD, GERD RADIATION DOSAGE (If Supplied By Facility): CTDIvol = ( 15.41 ) mGy, DLP = ( 1214.42 ) mGycm TECHNIQUE: Transaxial images were obtained from the dome of the diaphragm to the symphysis pubis without oral contrast. Oral and amp; IV Gastrografin and amp; 100mL Isovue-300 was administered. Sagittal and coronal images were reconstructed. Individualized dose optimization techniques were used for this CT. COMPARISON: June 07, 2019 FINDINGS: The visualized lung bases are unremarkable. The visualized portions of the heart are within normal limits. Motion artifact degrades anatomic detail. Normal liver. The gallbladder surgically absent. There is splenomegaly. Normal pancreas. Normal bilateral adrenal glands. Within the lower pole of the right kidney there is a 2.2 cm round low-attenuation focus involving the cortical medullary junction. There is a too small to characterize low-attenuation focus within the upper/mid pole of the right kidney which may a reflect cyst. Normal left kidney. There is a small hiatal hernia. Normal small intestine. There are multiple colonic diverticula consistent with diverticulosis. The appendix is visualized and appears normal. There is diffuse atherosclerotic calcification of the abdominal aorta, without a demonstrated aneurysm. Normal inferior vena cava. Normal retroperitoneum. Normal urinary bladder. Normal abdominal wall. There are diffuse degenerative changes of the visualized thoracic and lumbar spine. CT/Abdomen/Pelvis WITH Contrast IMPRESSION: Indeterminate 2.2 cm round low attenuation focus within the right kidney which may reflect an underlying cyst or neoplastic process, cannot exclude focal pyelonephritis. Splenomegaly. Atherosclerosis. Hiatal hernia. Colonic diverticulosis. Electronically Signed: Joy Cheng MD at 16:56 EDT Tel , Service support ,
[2020-03-05 14:38] LABS: Absolute Lymphocyte Count 1.31 X10^3/uL (0.83-4.51); Absolute Neutrophil Count 4.3 X10^3/uL (2.0-7.7); Basophil# 0.04 X10^3/uL; Basophil% 0.6 % (0-1); Eosinophils% 3.1 % (0-5); Hematocrit 39.4 % (37-47); Hemoglobin 12.7 g/dL (12.0-15.0); Lymphocyte # 1.31 X10^3/ul (4.0); Lymphocyte % 20.2 % (19-41); Mean Corp Hgb Conc 32.2 g/dL (32-36); Mean Corpuscular Hgb 30.5 pg (27.0-32.0); Mean Corpuscular Volume 94.7 fL (81-99); Monocyte# 0.64 X10^3/uL; Monocyte% 9.9 % (0-10); NRBC Flagged by Analyzer 0 % (0-5); Neutrophil # 4.26 X10^3/uL (2.7-7.7); Neutrophil % 65.7 % (47-70); Platelet Count 288 K/mm3 (150-450); RBC Distribution Width CV 13.1 % (11.6-14.6); RBC Distribution Width SD 45.1 fl (35.1-43.9); Red Blood Count 4.16 M/mm3 (4.2-5.4); White Blood Count 6.5 K/mm3 (4.4-11.0)
[2020-03-05] MEDS: 0.9% Normal Saline 1,000 ML 1000 ML IV (14:38)
[2020-03-05] MEDS: Morphine 4 MG/ML Syringe IV (14:39)
[2020-03-05] MEDS: Ondansetron 4 MG/2 ML Vial IV (14:39)
[2020-03-05 14:49] LABS: ALB/GLOB Ratio 0.8 RATIO (0.9-2.4); AST(SGOT) 21 U/L (15-37); Alanine Aminotransfer ALT/SGPT 31 U/L (13-56); Albumin, Serum 3.1 g/dL (3.2-5.0); Alkaline Phosphatase 33 U/L (45-117); Anion Gap 9 (5-15); BUN 20 mg/dL (7-18); BUN/Creat Ratio 12.2 RATIO (10-20); Calcium,Total 8.5 mg/dL (8.5-10.1); Chloride 104 mmol/L (98-107); Creatinine, Serum 1.64 mg/dL (0.55-1.02); EST Glomerular Filtration Rate 34 mL/min (>60); Est Glom Filt Rate - Afr Amer 41 mL/min (>60); Estimated Creatinine Clearance 34.58 ml/min; Glucose 108 mg/dL (74-106); Lipase 119 U/L (73-393); Potassium 4.3 mmol/L (3.5-5.1); Protein, Total 7.1 g/dL (6.4-8.2); Sodium Level 139 mmol/L (136-145)
[2020-03-05 15:42] VITALS: PULSE 61; RESP 26; O2SAT 94
[2020-03-05 17:08] VITALS: PULSE 60; O2SAT 94
[2020-03-05 17:35] LABS: Mucous, Urine 0 SEEN /hpf (<or=2+); Red Blood Cells-Urine 0 SEEN /hpf (0-5)
[2020-03-05 17:36] LABS: Glucose, Dipstick Normal (Normal); Ketone-Dipstick Negative (Negative); Leukocyte Esterase-Dipstick 500 /ul (Negative); Nitrite-Dipstick Positive (Negative); Occult Blood-Urine 25 /ul (Negative); Protein-Dipstick 30 mg/dl (Negative); Specific Gravity, Urine 1.015 (1.002-1.030); Urine Bilirubin Dipstick Negative (Negative); Urine Clarity Cloudy (Clear); Urine Urobilinogen 1 mg/dl (Normal)
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
[2020-03-05 17:43] LABS: Color, Urine Amber (Yellow)
[2020-03-05 17:46] LABS: Bacteria 2+ /hpf (None Seen); Squamous Epithelial Cells - UA 0-5 SEEN /hpf (5-10); White Blood Cells 25-50 SEEN /hpf (0-5)
[2020-03-05] MEDS: Cephalexin 250 MG Capsule 500 MG PO (18:28)
[2020-03-05 18:31] VITALS: BP 126/76; PULSE 59; RESP 19; O2SAT 94
== END 2020-03-05 18:35 | disposition home or self-care (01) ==
PROVIDERS: Emergency Medicine; Emergency Provider Emergency Medicine; PCP Family Medicine
DX: N12 Tubulo-interstitial nephritis, not specified as acute or chronic (principal); E66.9 Obesity, unspecified; I10 Essential (primary) hypertension; K21.9 Gastro-esophageal reflux disease without esophagitis; M19.90 Unspecified osteoarthritis, unspecified site; Z79.899 Other long term (current) drug therapy
CPT/HCPCS: 71045; 74177; 80053; 81001; 83690; 85025; 87086; 87088; 87186; 96361; 96374; 96375; 99283; J7030; Q9967; A4216; J2405

== ENCOUNTER 2020-03-07 11:06 | Emergency (ER) | payer MEDICAID, SELFPAY ==
[2020-03-07 11:06] VITALS: BP 141/68; PULSE 76; RESP 16; TEMP 36.9; O2SAT 97; BMI 68.2
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
[2020-03-07] MEDS: Ketorolac 60 MG/2 ML Vial IM (11:48)
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
== END 2020-03-07 13:00 | disposition home or self-care (01) ==
PROVIDERS: Emergency Provider Emergency Medicine; PCP Family Medicine
DX: S16.1XXA Strain of muscle, fascia and tendon at neck level, initial encounter (principal); S20.219A Contusion of unspecified front wall of thorax, initial encounter; V43.52XA Car driver injured in collision with other type car in traffic accident, initial encounter; Y93.9 Activity, unspecified; Y92.410 Unspecified street and highway as the place of occurrence of the external cause; Y99.9 Unspecified external cause status; I10 Essential (primary) hypertension; K21.9 Gastro-esophageal reflux disease without esophagitis; F32.9 Major depressive disorder, single episode, unspecified; E66.01 Morbid (severe) obesity due to excess calories; Z68.44 Body mass index [BMI] 60.0-69.9, adult; Z79.899 Other long term (current) drug therapy; Z88.5 Allergy status to narcotic agent; Z87.891 Personal history of nicotine dependence; Z90.49 Acquired absence of other specified parts of digestive tract
CPT/HCPCS: 71046; 72040; 72072; 96372; 99284